=== PATIENT | male | born 1940 | race Caucasian/White ===

== ENCOUNTER 2021-03-12 08:30 | Emergency (ER) | payer OTHER, MEDICARE ==
[~2021-03-12] VITALS: Ht 177.8 cm; Wt 889.0 kg
[2021-03-12 08:40] VITALS: BP_SYST 146
[2021-03-12] MEDS ORDERED: SULF1TAB48 PO (09:14)
[2021-03-12] MEDS: SULFAMETHOXAZOLE/TRIMETHOPR DS 1 TABLET PO ONE (09:19)
[2021-03-12 09:28] VITALS: BP_SYST 121
== END 2021-03-12 09:28 | disposition home or self-care (01) ==
LOC: SED 08:30
DX: L02.511 Cutaneous abscess of right hand (principal); Z79.899 Other long term (current) drug therapy
CPT/HCPCS: 87070-TC; 87186-TC; 99283